=== PATIENT | male | born 1960 | race Caucasian/White ===

== ENCOUNTER 2024-03-22 07:01 | Outpatient (CLI) | payer OTHER ==
[2024-03-22 08:34] LABS: ALBUMIN 3.6 gm/dL (3.4-5.0); BILIRUBIN TOTAL 0.46 mg/dL (0.3-1.2); CALCIUM 8.8 mg/dL (8.5-10.1); CHOL HDL RATIO 3.4 (0-5.0); CREATININE SERUM 1.03 mg/dL (0.70-1.30); GFR 73.42; GLOBULINA 3.4 G/DL (2.4-3.5); POTASSIUM 3.73 mEq/L (3.5-5.1)
== END 2024-03-22 07:14 | disposition home or self-care (01) ==
LOC: LAB 07:01
PROVIDERS: ATTEND Specialist
DX: I35.1 Nonrheumatic aortic (valve) insufficiency (principal); E55.9 Vitamin D deficiency, unspecified; E66.8 Other obesity; Z68.29 Body mass index [BMI] 29.0-29.9, adult; I10 Essential (primary) hypertension; R00.1 Bradycardia, unspecified; I49.3 Ventricular premature depolarization; E78.01 Familial hypercholesterolemia; I34.0 Nonrheumatic mitral (valve) insufficiency

== ENCOUNTER 2024-07-18 07:40 | Outpatient (CLI) | payer OTHER ==
[2024-07-18 08:54] LABS: HEMATOCRIT 38.2 % (39.0-48.0); HEMOGLOBIN 12.6 g/dL (13-16.00); MEAN CELL VOLUME 88.3 fL (80.0-100.00); MEAN CORPUSCULAR HGB CONC 32.9 g/dl (32.0-36.0); PLATELET COUNT 364 K/uL (150-450); RED BLOOD COUNT 4.33 M/uL (4.00-6.00); RED CELL DISTRIBUTION WIDTH 13.9 % (11.5-14.5)
[2024-07-18 09:07] LABS: PH,URINE 7.5 (5.0-8.0); URINE APPEARANCE Cloudy; URINE BILIRRUBIN Negative (NEGATIVE); URINE BLOOD Negative; URINE COLOR Yellow; URINE GLUCOSE Negative (NEGATIVE); URINE KETONE Negative (NEGATIVE); URINE LEUKOCYTE Negative; URINE NITRATE Negative; URINE PROTEIN Negative (NEGATIVE); URINE UROBILINOGEN 0.2 E.U./dl
[2024-07-18 09:08] LABS: URINE RBC 2.6 uL (0.0-20.8)
[2024-07-18 09:26] LABS: URINE EPITHELIAL CELLS 0.4 uL (0.0-38.8); URINE WBC 1.5 uL (0.0-23.2)
[2024-07-18 09:27] LABS: URINE BACTERIA 1.2 uL (0.0-1933)
[2024-07-18 10:00] LABS: ALBUMIN 3.7 gm/dL (3.4-5.0); BILIRUBIN TOTAL 0.55 mg/dL (0.3-1.2); CALCIUM 8.6 mg/dL (8.5-10.1); CREATININE SERUM 1.11 mg/dL (0.70-1.30); GFR 67.35; GLOBULINA 3.6 G/DL (2.4-3.5); POTASSIUM 3.45 mEq/L (3.5-5.1); TOTAL PROTEIN 7.3 gm/dL (6.4-8.2)
[2024-07-18 12:14] LABS: PROSTATIC SPECIFIC ANTIGEN 1.64 NG/ML (0.010-4.00)
== END 2024-07-18 07:45 | disposition home or self-care (01) ==
LOC: LAB 07:40
PROVIDERS: ATTEND Urology
DX: N32.81 Overactive bladder (principal)

== ENCOUNTER 2024-11-25 08:01 | Outpatient (CLI) | payer OTHER | END 2024-11-25 08:04 | disposition home or self-care (01) | LOC: MRI 08:01 | PROVIDERS: ATTEND Orthopaedic Surgery | DX: M25.561 Pain in right knee (principal) | CPT/HCPCS: 73721 ==

== ENCOUNTER → 2025-02-01 | Emergency (ER) | payer OTHER ==
[~2025-02-01] VITALS: Ht 177.8 cm; Wt 90.7 kg
[~2025-02-01] MED LIST: ATACAND4 MG PO; NORVASC2.5 M1 PO
[2025-02-01 13:40] LABS: BASO % 0.3 % (0.1-1.2); EOS # 0.18 (0.04-0.54); EOS % 3.0 % (0.7-7.0); LYMPH # 2.65 (1.18-3.74); LYMPH % 44.3 % (19.3-53.1); MEAN PLATELET VOLUME 8.10 fl (9.4-12.4); MONO # 0.39 (0.24-0.82); MONO % 6.5 % (4.7-12.5); NEUT # 2.72 (1.56-6.13); NEUT % 45.6 % (34.0-71.1); RED CELL DISTRIBUTION WIDTH 14.0 % (11.6-14.4)
[2025-02-01 13:55] LABS: COVID-19 AG NEGATIVE (NEGATIVE)
== END | disposition home or self-care (01) ==
LOC: ER 10:22
PROVIDERS: General Practice
DX: J06.9 Acute upper respiratory infection, unspecified (principal); G89.11 Acute pain due to trauma; M79.675 Pain in left toe(s); Z20.822 Contact with and (suspected) exposure to COVID-19

== ENCOUNTER → 2025-03-25 10:19 | Outpatient (CLI) | payer OTHER ==
[2025-03-25 12:58] LABS: ALT/SGPT 19.0 U/L (12-78); AST/SGOT 12.0 U/L (15-37); BILIRUBIN TOTAL 0.47 mg/dL (0.3-1.2); BUN CREA RATIO 8.0 (7.0-25.0); CHOL HDL RATIO 3.1 (0-5.0); CREATININE SERUM 1.15 mg/dL (0.70-1.30); GFR 64.44; GLOBULINA 3.5 G/DL (2.4-3.5); GLUCOSE FASTING 74.0 mg/dL (65-100); HDL 50.0 mg/dl (40-60); LDL 85.0 mg/dl (0-130); OSMOLALITY SERUM 282.0 MOSM/KG (275-295); VLDL 21.0 (0-39)
== END | disposition home or self-care (01) ==
LOC: LAB 10:19
PROVIDERS: ATTEND Specialist
DX: I10 Essential (primary) hypertension (principal); R00.1 Bradycardia, unspecified; I49.3 Ventricular premature depolarization; E78.01 Familial hypercholesterolemia; I34.0 Nonrheumatic mitral (valve) insufficiency; I35.1 Nonrheumatic aortic (valve) insufficiency; E55.9 Vitamin D deficiency, unspecified; E66.89 Other obesity not elsewhere classified; Z68.30 Body mass index [BMI] 30.0-30.9, adult; I87.2 Venous insufficiency (chronic) (peripheral); R42 Dizziness and giddiness; E87.6 Hypokalemia

== ENCOUNTER 2025-04-05 15:19 | Outpatient (CLI) | payer OTHER | END 2025-04-05 15:24 | disposition home or self-care (01) | LOC: RAD 15:19 | PROVIDERS: ATTEND Orthopaedic Surgery | DX: M54.2 Cervicalgia (principal); M54.6 Pain in thoracic spine; M54.59 Other low back pain; M25.551 Pain in right hip; M25.552 Pain in left hip; M79.672 Pain in left foot ==